=== PATIENT | male | born 1955 | race Two or more races ===

== ENCOUNTER 2021-03-22 06:29 | Emergency (ER) | payer SELFPAY ==
--- NOTE | 2021-03-22 06:53 | EDM.PDOC ---
<Kapil De Leon - Last Filed: 03/22/21 06:43> ED HPI GENERAL MEDICAL PROBLEM - General Chief Complaint: Abdominal Pain Stated Complaint: ABDOMINAL PAIN Time Seen by Provider: 03/22/21 06:43 - Related Data Allergies Allergy/AdvReac Type Severity Reaction Status Date / Time No Known Allergies Allergy Verified 03/22/21 06:44 Home Meds: Home Meds . [No Known Home Meds] 03/22/21 [History] Departure - Departure Disposition: Home, Self-Care 01 Clinical Impression: Abdominal pain Qualifiers: Abdominal location: generalized Qualified Code(s): R10.84 - Generalized abdominal pain - Discharge Information Referrals: PCP,[place] [Primary Care Provider] - Kiki Birch NP [Nurse Practitioner] - 1 Week Forms: ED Department Discharge Additional Instructions: Drink plenty of fluids. You may also take a stool softner like colace. Please return if you are worse. <Josemanuel Quinones - Last Filed: 03/22/21 09:26> ED HPI GENERAL MEDICAL PROBLEM - General Source of Information: Reports: Patient History Limitations: Reports: No Limitations - History of Present Illness INITIAL COMMENTS - FREE TEXT/NARRATIVE: The patient presents with generalized abdominal pain. This has been going on for about 4 days. He denies nausea or vomiting. He has no fever or chills. He says he has not had a good bowel movement within a few days. He has no other symptoms like headache, chest pain, shortness of breath, or dysuria. He has no history of surgery. Onset: Gradual Duration: Day(s): Location: Reports: Abdomen Quality: Reports: Sharp Severity: Moderate Improves with: Reports: None Worsens with: Reports: None Associated Symptoms: Reports: No Other Symptoms Abdominal Pain Score (Numeric/FACES): 4 ED ROS GENERAL - Review of Systems Review Of Systems: See Below Constitutional: Reports: No Symptoms HEENT: Reports: No Symptoms Respiratory: Reports: No Symptoms Cardiovascular: Reports: No Symptoms Endocrine: Reports: No Symptoms GI/Abdominal: Reports: Abdominal Pain. Denies: Diarrhea, Nausea, Vomiting : Reports: No Symptoms Musculoskeletal: Reports: No Symptoms ED EXAM, GI/ABD - Physical Exam Exam: See Below Exam Limited By: Language Barrier ([employer]der was used online) General Appearance: Alert, No Apparent Distress Ears: Normal External Exam Nose: Normal Inspection Head: Atraumatic, Normocephalic Neck: Normal Inspection Respiratory/Chest: No Respiratory Distress, Lungs Clear, Normal Breath Sounds Cardiovascular: Regular Rate, Rhythm, No Edema, No Murmur GI/Abdominal Exam: Soft, No Organomegaly, Tender (Mild generalized tenderness) Rectal (Males) Exam: Normal Exam Back Exam: Normal Inspection Course - Vital Signs Last Recorded V/S: Last Vital Signs Temp 97.6 F 03/22/21 06:42 Pulse 65 03/22/21 06:42 Resp 16 03/22/21 06:42 BP 172/82 H 03/22/21 06:42 Pulse Ox 100 03/22/21 06:42 - Orders/Labs/Meds Orders: Active Orders 24 hr Category Date Time Status Peripheral IV Care [RC] . DIRECTED Care 03/22/21 06:59 Active Sodium Chloride 0.9% [Saline Flush] Med 03/22/21 06:59 Active 10 ml FLUSH ASDIRECTED PRN Sodium Chloride 0.9% [Saline Flush] Med 03/22/21 08:04 Active 10 ml FLUSH ONETIME PRN ED Antiemetic Medication Reflex [OM.PC] Stat Oth 03/22/21 06:59 Ordered Peripheral IV Insertion Adult [OM.PC] Stat Oth 03/22/21 06:59 Ordered Medication Orders Sodium Chloride (Sodium Chloride 0.9% 10 Ml Syringe) 10 ml FLUSH ASDIRECTED PRN PRN Reason: Keep Vein Open Last Admin: 03/22/21 07:16 Dose: 10 ml Documented by: ROMEO Sodium Chloride (Sodium Chloride 0.9% 10 Ml Syringe) 10 ml FLUSH ONETIME PRN PRN Reason: IV FLUSH Last Admin: 03/22/21 08:35 Dose: 10 ml Documented by: DELROY Labs: Laboratory Tests 03/22/21 03/22/21 03/22/21 Range/Units 07:15 07:30 07:50 WBC 4.80 (4.23-9.07) K/mm3 RBC 4.91 (4.63-6.08) M/mm3 Hgb 15.4 (13.7-17.5) gm/dl Hct 44.6 (40.1-51.0) % MCV 90.8 (79.0-92.2) fl MCH 31.4 (25.7-32.2) pg MCHC 34.5 (32.2-35.5) g/dl RDW Std Deviation 41.4 (35.1-43.9) fL Plt Count 288 (163-337) K/mm3 MPV 9.7 (9.4-12.3) fl Neut % (Auto) 62.9 (34.0-67.9) % Lymph % (Auto) 23.3 (21.8-53.1) % Parker % (Auto) 12.1 (5.3-12.2) % Eos % (Auto) 1.3 (0.8-7.0) Baso % (Auto) 0.2 (0.1-1.2) % Neut # (Auto) 3.02 (1.78-5.38) K/mm3 Lymph # (Auto) 1.12 L (1.32-3.57) K/mm3 Parker # (Auto) 0.58 (0.30-0.82) K/mm3 Eos # (Auto) 0.06 (0.04-0.54) K/mm3 Baso # (Auto) 0.01 (0.01-0.08) K/mm3 Sodium 139 (136-145) mEq/L Potassium 4.3 (3.5-5.1) mEq/L Chloride 103 (98-107) mEq/L Carbon Dioxide 28 (21-32) mEq/L Anion Gap 12.3 (5-15) BUN 24 H (7-18) mg/dL Creatinine 1.6 H (0.7-1.3) mg/dL Est Cr Clr Drug Dosing TNP Estimated GFR (MDRD) 44 (>60) mL/min BUN/Creatinine Ratio 15.0 (14-18) Glucose 112 H (70-99) mg/dL Calcium 9.0 (8.5-10.1) mg/dL Total Bilirubin 0.7 (0.2-1.0) mg/dL AST 24 (15-37) U/L ALT 41 (16-63) U/L Alkaline Phosphatase 76 (46-116) U/L Total Protein 7.9 (6.4-8.2) g/dl Albumin 4.1 (3.4-5.0) g/dl Globulin 3.8 gm/dL Albumin/Globulin Ratio 1.1 (1-2) Lipase 133 (73-393) U/L Urine Color Light yellow (Yellow) Urine Appearance Clear (Clear) Urine pH 7.0 (5.0-8.0) Ur Specific [place] 1.020 (1.005-1.030) Urine Protein Negative (Negative) Urine Glucose (UA) Negative (Negative) Urine Ketones Negative (Negative) Urine Occult Blood Negative (Negative) Urine Nitrite Negative (Negative) Urine Bilirubin Negative (Negative) Urine Urobilinogen 0.2 (0.2-1.0) Ur Leukocyte Esterase Negative (Negative) Urine RBC Not seen (0-5) /hpf Urine WBC 0-5 (0-5) /hpf Ur Squamous Epith Cells 0-5 (0-5) /hpf Urine Bacteria Not seen (FEW) /hpf Urine Mucus Not seen (FEW) /hpf Meds: Medications Generic Name Dose Route Start Last Admin Trade Name Gene PRN Reason Stop Dose Admin Sodium Chloride 10 ml 03/22/21 06:59 03/22/21 07:16 Sodium Chloride 0.9% 10 Ml Syringe FLUSH 10 ml ASDIRECTED PRN Administration Keep Vein Open Sodium Chloride 10 ml 03/22/21 08:04 03/22/21 08:35 Sodium Chloride 0.9% 10 Ml Syringe FLUSH 10 ml ONETIME PRN Administration IV FLUSH Discontinued Medications Generic Name Dose Route Start Last Admin Trade Name Freq PRN Reason Stop Dose Admin Diatrizoate Meglum/Diatrizoate Sod 120 ml 03/22/21 08:04 03/22/21 08:35 Diatrizoate Meglumine/Diatrizoate Sodium 37% 120 Ml Bottle PO 03/22/21 08:05 90 ml ONETIME ONE Administration Sodium Chloride 1,000 mls @ 1,000 mls/hr 03/22/21 06:59 03/22/21 07:17 Normal Saline IV 03/22/21 07:58 1,000 mls/hr .BOLUS STA Administration Iopamidol 100 ml 03/22/21 08:04 03/22/21 08:35 Iopamidol 612 Mg/Ml 100 Ml Bottle IVPUSH 03/22/21 08:05 100 ml ONETIME ONE Administration Ondansetron HCl 4 mg 03/22/21 06:59 03/22/21 07:16 Ondansetron 4 Mg/2 Ml Sdv IVPUSH 03/22/21 07:00 4 mg ONETIME ONE Administration - Re-Assessments/Exams Free Text/Narrative Re-Assessment/Exam: 03/22/21 09:10 I ordered an IV NS 1L bolus, zofran 4mg IV, labs, UA and a CT of his abdomen and pelvis. His CBC and CMP look good. His lipase is normal. His UA shows no UTI. Departure - Departure Time of Disposition: 09:25 Condition: Good - Discharge Information *PRESCRIPTION DRUG MONITORING PROGRAM REVIEWED*: Not Applicable *COPY OF PRESCRIPTION DRUG MONITORING REPORT IN PATIENT MARTHA: Not Applicable Sepsis Event Note (ED) - Focused Exam Vital Signs: Vital Signs Temp Pulse Resp BP Pulse Ox 03/22/21 06:42 97.6 F 65 16 172/82 H 100 - My Orders Last 24 Hours: My Active Orders 03/22/21 06:59 Peripheral IV Care [RC] . DIRECTED Sodium Chloride 0.9% [Saline Flush] 10 ml FLUSH ASDIRECTED PRN ED Antiemetic Medication Reflex [OM.PC] Stat Peripheral IV Insertion Adult [OM.PC] Stat 03/22/21 08:04 Sodium Chloride 0.9% [Saline Flush] 10 ml FLUSH ONETIME PRN - Assessment/Plan Last 24 Hours: My Active Orders 03/22/21 06:59 Peripheral IV Care [RC] . DIRECTED Sodium Chloride 0.9% [Saline Flush] 10 ml FLUSH ASDIRECTED PRN ED Antiemetic Medication Reflex [OM.PC] Stat Peripheral IV Insertion Adult [OM.PC] Stat 03/22/21 08:04 Sodium Chloride 0.9% [Saline Flush] 10 ml FLUSH ONETIME PRN
[2021-03-22] MEDS ORDERED: Sodium Chloride 0.9% 10 ML Syringe FLUSH PRN ×2 (06:59→08:04)
[2021-03-22] MEDS ORDERED: Ondansetron 4 MG/2 ML SDV IVPUSH ONE (06:59)
[2021-03-22] MEDS ORDERED: Sodium Chloride 0.9% 1,000 ML IV STA (06:59)
[2021-03-22] MEDS ORDERED: Diatrizoate Meglumine/Diatrizoate Sodium 37% 120 ML Bottle PO ONE (08:04)
[2021-03-22] MEDS ORDERED: Iopamidol 612 MG/ML 100 ML Bottle IVPUSH ONE (08:04)
--- NOTE | 2021-03-22 09:07 | CT ---
CT abdomen and pelvis Technique: Multiple axial sections were obtained from above the dome of the diaphragm inferiorly through the pubic symphysis. Intravenous and oral contrast were utilized. Delayed images were also obtained through the bladder. Reconstructed coronal and sagittal images were obtained. Comparison: No prior abdominal imaging is available. Findings: Visualized lung bases show very slight right basilar atelectasis. Liver contains no focal parenchymal abnormality. Gallbladder contains no calcified gallstones. Spleen size is within normal limits. Adrenal glands showed no nodule. Pancreas shows no focal abnormality. Kidneys show symmetric contrast enhancement. Right kidney shows 2 cysts with largest measuring 1.4 cm. Left kidney shows a small cyst measuring 5 mm. No hydronephrosis is seen. No ureteral calculi are seen. Abdominal aorta shows mild atherosclerotic change with no aneurysm. No retroperitoneal adenopathy or mesenteric abnormalities are seen. No pelvic mass or adenopathy is seen. No free fluid or inflammatory change is seen. Delayed images show contrast within the distal ureters and within the bladder. Appendix is seen which is normal in size. Bone window settings were reviewed. Spondylolytic defects are seen at L5-S1. Severe disc space narrowing is seen at L5-S1 with spondylolisthesis of about 1.0 cm. There is a moderate compression deformity of L1 as well as a very slight compression deformity of superior endplate of T12, these are most likely old. Impression: 1. Old findings as noted above. 2. Nothing acute is appreciated on CT study of the abdomen and pelvis. Diagnostic code #2
[2021-03-22] MEDS ORDERED: Magnesium Citrate Solution 296 ML Bottle PO ONE (09:24)
== END 2021-03-22 09:32 | disposition home or self-care (01) ==
LOC: JD.ED 06:29
DX: R10.84 Generalized abdominal pain (principal)
CPT/HCPCS: 36415; 74177; 80053; 81001; 83690; 85025; 96374; 99284; A9270; J2405; J7030; Q9963; Q9967